=== PATIENT | female | born 1935 | race Caucasian/White ===

== ENCOUNTER → 2017-11-27 | Outpatient (CLI) | payer MEDICARE, OTHER ==
[~2017-11-27] MED LIST: AMLO-96 PO; ASPI81TA94 PO; ATOR10TA65 PO; CA C1TAB85 PO; CEP500 PO; CIPDEXPT LEFT EAR; CIPR-214 PO; CIPR-344 PO; DICL100G39 TP; EZET10TA41 PO; FAM20 PO; FAMO20TA28 PO; FLU45SYR17 IM; FLUT9.9S; HYDR-385 PO; HYDR-4309 PO; HYDR12.556 PO; HYDROCODONE PO; IBU600 PO; IBUP-1687 PO; IBUP600T22 PO; LOR5/325 PO; LOSA-57 PO; LOSA100T67 PO; MULT-1335 PO; PHEN200T32 PO; PHENA200 PO; PNEU0.5D3 IM; TRIA10.8; ZOST19404 IM
== END ==
LOC: LAB 16:49
PROVIDERS: ATTEND Nurse Practitioner Family
DX: Z83.3 Family history of diabetes mellitus (principal)
CPT/HCPCS: 36415; 83036

== ENCOUNTER 2017-12-13 11:49 | Emergency (ER) | payer MEDICARE, OTHER ==
--- NOTE | 2017-12-13 11:58 | ER Report ---
History and Physical Time Seen By MD: 11:58 HPI/ROS CHIEF COMPLAINT: Right knee pain HISTORY OF PRESENT ILLNESS: 82-year-old female patient presents to emergency room with complaint of right knee pain. Patient states that she's been having problems with this for the past 2 weeks. She states that she's noticed dysrhythmias swelling, and seems worse in the morning. She states that it seems to improve throughout the day. She states she's felt like her lower leg is cold. She states when she touches that that is normal temperature, however it feels very cold. She states that she did see her primary care provider for this who checked her for diabetes, checking an A1c which was 5.4, and was told that was normal. She denies any fevers, chills, trauma to the knee. She states she is not taking any medication for this. REVIEW OF SYSTEMS: Respiratory: No cough, no dyspnea. Cardiovascular: No chest pain, no palpitations. Gastrointestinal: No vomiting, no abdominal pain. Musculoskeletal: As noted above Allergies: Coded Allergies: Penicillins (Verified Allergy, Severe, THROAT SWELLING, 12/13/17) codeine (Verified Allergy, Intermediate, SEVERE NAUSEA, 12/13/17) Uncoded Allergies: CHOLESTEROL DRUGS (Allergy, Mild, NAUSEA, 10/06/07) Home Meds Active Scripts Ibuprofen (IBUPROFEN) 600 Mg Tablet, 1 TAB PO TID, #21 TAB Prov:DASHAWN ORR [employer] 12/13/17 Losartan/Hydrochlorothiazide (LOSARTAN-HCTZ 100-12.5 MG TAB) 1 Each Tablet, 0.5 TAB PO QDAY, #45 TAB 2 Refills Prov:INESSA GUTIERREZ APRN [employer]-C 08/19/17 Atorvastatin Calcium (ATORVASTATIN CALCIUM) 10 Mg Tablet, 1 TAB PO QODAY, #45 TAB 2 Refills Prov:INESSA GUTIERREZ APRN [employer]-C 07/30/17 Reported Medications Ibuprofen (IBUPROFEN) 600 Mg Tablet, 1 TAB PO TID Y for PAIN, #30 TAB 08/25/17 Famotidine (PEPCID) 20 Mg Tablet, 20 MG PO BID, #20 TAB 08/25/17 Past Medical/Surgical History Patient has a past medical history of heart murmur, hypertension, hyperlipidemia , colitis, arthritis, left wrist fracture, back pain, TMJ. Patient has a surgical history of left breast biopsy, cataract surgery, tonsillectomy, foot surgery, hysterectomy, cystoscopy, bladder suspension, cholecystectomy, appendectomy. Patient has a family medical history of diabetes, stroke, CAD, cancer. Reviewed Nurses Notes: Yes Hx Smoking: No Smoking Status: Never Smoker Hx Alcohol Use: No Constitutional Vital Sign - Last 24 Hours 12/13/17 12/13/17 12/13/17 12/13/17 11:57 11:58 12:09 12:29 Temp 98.6 Pulse 92 90 82 Resp 16 B/P (MAP) 163/81 163/81 (108) Pulse Ox 94 93 93 O2 Delivery Room Air 12/13/17 12/13/17 12/13/17 12/13/17 12:30 12:35 12:55 13:00 Pulse 84 85 B/P (MAP) 144/66 (92) 142/64 (90) Pulse Ox 92 95 12/13/17 12/13/17 13:15 13:29 Pulse 80 B/P (MAP) 153/74 (100) Pulse Ox 95 Physical Exam General Appearance: The patient is alert, has no immediate need for airway protection and no current signs of toxicity. Respiratory: Chest is non tender, lungs are clear to auscultation. Cardiac: regular rate and rhythm Gastrointestinal: Abdomen is soft and non tender, no masses, bowel sounds normal. Musculoskeletal: Neck: Neck is supple and non tender. Extremities have full range of motion and are non tender. Patient has some tenderness to the left knee, mild swelling noted. No bruising, erythema noted. Skin: No rashes or lesions. DIFFERENTIAL DIAGNOSIS: After history and physical exam differential diagnosis was considered for contusion, fracture, arthritis, gout. Medical Decision Making Data Points Result Diagram: 12/13/17 1216 12/13/17 1216 Laboratory Hematology Test 12/13/17 12:16 Red Blood Count 4.86 M/uL (4.17-5.56) Mean Corpuscular Volume 89.6 fL (80.0-96.0) Mean Corpuscular Hemoglobin 31.3 pg (26.0-33.0) Mean Corpuscular Hemoglobin Concent 34.9 g/dL (32.0-36.0) Red Cell Distribution Width 12.5 % (11.5-14.5) Mean Platelet Volume 7.9 fL (7.2-11.1) Neutrophils (%) (Auto) 70.1 % (39.4-72.5) Lymphocytes (%) (Auto) 22.4 % (17.6-49.6) Monocytes (%) (Auto) 6.4 % (4.1-12.4) Eosinophils (%) (Auto) 0.6 % (0.4-6.7) Basophils (%) (Auto) 0.5 % (0.3-1.4) Nucleated RBC Relative Count (auto) 0.0 /100WBC Neutrophils # (Auto) 4.9 K/uL (2.0-7.4) Lymphocytes # (Auto) 1.6 K/uL (1.3-3.6) Monocytes # (Auto) 0.5 K/uL (0.3-1.0) Eosinophils # (Auto) 0.0 K/uL (0.0-0.5) Basophils # (Auto) 0.0 K/uL (0.0-0.1) Nucleated RBC Absolute Count (auto) 0.00 K/uL Sodium Level 134 mmol/L (137-145) Potassium Level 3.6 mmol/L (3.5-5.0) Chloride Level 98 mmol/L (98-107) Carbon Dioxide Level 25 mmol/L (22-31) Blood Urea Nitrogen 11 mg/dl (7-18) Creatinine 0.70 mg/dl (0.52-1.04) Glomerular Filtration Rate Calc > 60.0 Random Glucose 108 mg/dl (75-110) Uric Acid 4.1 mg/dl (2.5-7.5) Calcium Level 9.2 mg/dl (8.4-10.2) Total Bilirubin 0.9 mg/dl (0.2-1.3) Aspartate Amino Transf (AST/SGOT) 31 U/L (0-35) Alanine Aminotransferase (ALT/SGPT) 33 U/L (0-56) Alkaline Phosphatase 76 U/L (0-126) C-Reactive Protein < 0.5 mg/dl (<1.0) Total Protein 7.5 gm/dl (6.3-8.2) Albumin 4.3 g/dl (3.5-5.0) Chemistry Test 12/13/17 12:16 White Blood Count 7.1 k/uL (4.5-11.0) Red Blood Count 4.86 M/uL (4.17-5.56) Hemoglobin 15.2 g/dL (12.0-16.0) Hematocrit 43.6 % (34.0-47.0) Mean Corpuscular Volume 89.6 fL (80.0-96.0) Mean Corpuscular Hemoglobin 31.3 pg (26.0-33.0) Mean Corpuscular Hemoglobin Concent 34.9 g/dL (32.0-36.0) Red Cell Distribution Width 12.5 % (11.5-14.5) Platelet Count 281 K/uL (150-450) Mean Platelet Volume 7.9 fL (7.2-11.1) Neutrophils (%) (Auto) 70.1 % (39.4-72.5) Lymphocytes (%) (Auto) 22.4 % (17.6-49.6) Monocytes (%) (Auto) 6.4 % (4.1-12.4) Eosinophils (%) (Auto) 0.6 % (0.4-6.7) Basophils (%) (Auto) 0.5 % (0.3-1.4) Nucleated RBC Relative Count (auto) 0.0 /100WBC Neutrophils # (Auto) 4.9 K/uL (2.0-7.4) Lymphocytes # (Auto) 1.6 K/uL (1.3-3.6) Monocytes # (Auto) 0.5 K/uL (0.3-1.0) Eosinophils # (Auto) 0.0 K/uL (0.0-0.5) Basophils # (Auto) 0.0 K/uL (0.0-0.1) Nucleated RBC Absolute Count (auto) 0.00 K/uL Glomerular Filtration Rate Calc > 60.0 Uric Acid 4.1 mg/dl (2.5-7.5) Calcium Level 9.2 mg/dl (8.4-10.2) Total Bilirubin 0.9 mg/dl (0.2-1.3) Aspartate Amino Transf (AST/SGOT) 31 U/L (0-35) Alanine Aminotransferase (ALT/SGPT) 33 U/L (0-56) Alkaline Phosphatase 76 U/L (0-126) C-Reactive Protein < 0.5 mg/dl (<1.0) Total Protein 7.5 gm/dl (6.3-8.2) Albumin 4.3 g/dl (3.5-5.0) EKG/Imaging Imaging KNEE 4 VIEW RIGHT HISTORY: knee pain 4 view examination of the right knee FINDINGS: No acute bony pathology. The distal femur and proximal tibia/fibular well- maintained. No joint effusion. Joint spaces relatively well-maintained which is minimal asymmetric medial joint compartment narrowing change with minimal marginal osteophytes.. No patellar tilt or translation. Soft tissues unremarkable. IMPRESSION: 1. Negative right knee for acute bony pathology. Report Dictated By: Scott Nguyen MD at 12/13/2017 1:09 PM Report E-Signed By: Scott Nguyen MD at 12/13/2017 1:11 PM ED Course/Re-evaluation ED Course Patient was admitted and examined, history and physical were obtained. Differential diagnoses were considered. On examination patient has tenderness to the knee and lower leg. X-rays done of the right knee. A CBC, CMP, uric acid , CRP were done. Lab results were unremarkable. I discussed findings with the patient. Her imaging results were also negative. I believe that she is likely having osteoarthritis that she's having pain that is worse in the morning and that seems to improve throughout the day. We will go ahead and put her on ibuprofen 600 mg 3 times a day for 7 days. She is to limit her activity by pain. However I would like her to continue with her normal activities as best as she can tolerate. She is follow-up with primary care provider in one week. Discusses the patient who verbalized understanding and agreement. Decision to Disposition Date: Dec 13, 2017 Decision to Disposition Time: 13:20 Depart Departure Latest Vital Signs Vital Signs Date Time Temp Pulse Resp B/P (MAP) Pulse Ox O2 Delivery O2 Flow Rate FiO2 12/13/17 13:29 153/74 (100) 12/13/17 13:15 80 95 12/13/17 11:57 98.6 16 Room Air Impression: Primary Impression: Osteoarthritis Condition: Improved Disposition: HOME OR SELF-CARE Referrals: INESSA GUTIERREZ APRN-C (PCP) New Scripts Ibuprofen (IBUPROFEN) 600 Mg Tablet 1 TAB PO TID, #21 TAB Prov: DASHAWN ORR 12/13/17 Patient Instructions: Osteoarthritis (ED) Additional Instructions: Limit activity by pain. Continue with activity as tolerated. Ice the knee 2-3 times a day. Follow up with Inessa Gutierrez in the next week. Get plenty of rest. Return to the ER if condition worsens. Problem Qualifiers Primary Impression: Osteoarthritis Osteoarthritis location: knee Osteoarthritis type: primary Laterality: right Qualified Codes: M17.11 - Unilateral primary osteoarthritis, right knee DASHAWN ORR Dec 13, 2017 11:58
[2017-12-13 12:32] LABS: PLATELET COUNT, AUTOMATED 281 K/uL (150-450)
--- NOTE | 2017-12-13 13:14 | RADIOLOGY IMAGING REPORT ---
FACILITY: [facility] PATIENT NAME: Janette Byrd : 1935 MR: [id number] V: [id number] EXAM DATE: ORDERING PHYSICIAN: DASHAWN ORR TECHNOLOGIST: Location: [facility] Patient: Janette Byrd : 1935 Visit/Account:[id number] Date of Sevice: 12/13/2017 KNEE 4 VIEW RIGHT HISTORY: knee pain 4 view examination of the right knee FINDINGS: No acute bony pathology. The distal femur and proximal tibia/fibular well-maintained. No joint effusi on. Joint spaces relatively well-maintained which is minimal asymmetric medial joint compartment narr owing change with minimal marginal osteophytes.. No patellar tilt or translation. Soft tissues unrema rkable. IMPRESSION: 1. Negative right knee for acute bony pathology. Report Dictated By: Scott Nguyen MD at 12/13/2017 1:09 PM Report E-Signed By: Scott Nguyen MD at 12/13/2017 1:11 PM [id number]
[2017-12-13] MEDS ORDERED: IBUP600T22 PO (13:18)
[2017-12-13 13:29] VITALS: BP 153/74
== END 2017-12-13 13:39 | disposition home or self-care (01) ==
LOC: ER 11:54
DX: M17.11 Unilateral primary osteoarthritis, right knee (principal)
CPT/HCPCS: 36415; 73564; 82040; 82247; 82310; 82374; 82435; 82565; 82947; 84075; 84132; 84155; 84295; 84450; 84460; 84520; 84550; 85025; 86140; 99283

== ENCOUNTER → 2018-08-05 | Outpatient (CLI) | payer MEDICARE, OTHER ==
[~2018-08-05] MED LIST changes: +AMLO-111 PO; -AMLO-96 PO; -HYDR-4309 PO; +HYDR-653 PO; -LOSA100T67 PO; +LOSA100T69 PO
== END ==
LOC: LAB 13:51
DX: R31.1 Benign essential microscopic hematuria (principal)
CPT/HCPCS: 88108